=== PATIENT | female | born 1975 | race Caucasian/White ===

== ENCOUNTER 2016-11-27 15:20 | Emergency (ER) | payer OTHER ==
[2016-11-27 15:25] VITALS: RESP 16; TEMP 97.3
--- NOTE | 2016-11-27 15:31 | EDPHY ---
H & P Stated Complaint: dizzy Time Seen by Provider: 11/27/16 15:30 - Personal History LMP (Females 10-55): 8-14 Days Ago Current Tetanus/Diphtheria Vaccine: No Current Tetanus Diphtheria and Acellular Pertussis (TDAP): No - Medical/Surgical History Hx Asthma: No Hx Chronic Respiratory Disease: No Hx Diabetes: No Hx Cardiac Disease: No Hx Renal Disease: No Hx Cirrhosis: No Hx Alcoholism: No Hx HIV/AIDS: No Hx Splenectomy or Spleen Trauma: No Other PMH: pmh- , vtach. psh- csection - Social History Smoking Status: Never smoked Constitutional: Initial Vital Signs Temperature (C) 36.3 C 11/27/16 15:23 Heart Rate 62 11/27/16 15:23 Respiratory Rate 16 11/27/16 15:23 Blood Pressure 113/74 11/27/16 15:23 O2 Sat (%) 99 11/27/16 15:23 O2 Delivery Mode Room Air Allergies/Adverse Reactions: No Known Allergies Allergy (Unverified 06/17/14 11:57) Home Medications: Medication Instructions Recorded predniSONE 50 mg PO DAILY #4 tablet 09/23/15 Meclizine HCl [Meclizine HCl 25 mg 25 mg PO Q8 #20 tab 11/27/16 (RX,OTC)] Medical Decision Making - Diagnostics Imaging Results: Imaging Impressions Brain MRI 11/27/16 16:53 Impression: Normal. I telephoned results to Dr. Jean-Paul Rossi at 1747 hours. Imaging: Discussed imaging studies w/ manager call center Radiologist ED Course/Re-evaluation: CHIEF COMPLAINT: Dizziness HISTORY OF PRESENT ILLNESS: This patient is a 40 year old female with history of ventricular tachycardia complaining of dizziness onset yesterday evening. She describes her sensation as imbalance similar to being on a boat, and feels "strange" or "fuzzy" in the back of her head when she moves her head side to side. These sensations have gotten progressively worse beginning an hour before arrival. She has history of ventricular tachycardia and was previously taking Toprol XL, but discontinued this medication prior to her son's 5 years ago and has not followed up with cardiology since that time. Her arrhythmias were identified by monitor, and were asymptomatic in the past. She is generally in good health, but feels dehydrated today. She has never had similar symptoms before. She does [place] [address] and commutes daily to the [place] area. She denies recent illness, fever, chills, vomiting, or other associated symptoms. REVIEW OF SYSTEMS: A 10 point review of systems was performed and is negative with the exception of the elements mentioned in the history of present illness. PHYSICAL EXAM: HR, BP, O2 Sat, RR. Temp noted General Appearance: Alert, well hydrated, appropriate, and non-toxic appearing. Head: Atraumatic without scalp tenderness or obvious injury Eyes: Pupils equal, round, reactive to light and accommodation, EOMI, no trauma , no injection. Ears: Clear bilaterally, no perforation, normal landmarks Nose: Atraumatic, no rhinorrhea, clear. Throat: There is no erythema or exudates, no lesions, normal tonsils, mucus membranes moist. Neck: Supple, 2+ carotid upstroke, nontender, no lymphadenopathy. Respiratory: No retractions, no distress, no wheezes, and no accessory muscle use. Lungs are clear to auscultation bilaterally. Cardiovascular: Regular rate and rhythm, no murmurs, rubs, or gallops. Good capillary refill all extremities. Gastrointestinal: Abdomen is soft, nontender, non-distended, no masses, no rebound, no guarding, no peritoneal signs. Musculoskeletal: Normal active ROM of all extremities, atraumatic. Neurological: Alert, appropriate, and interactive. The patient has normal DTRs and non-focal cranial nerves, motor, sensory, and cerebellar exam. * Feeling off balance on toes and heels. Strength normal. Skin: No rashes, good turgor, no nodules on palpation. Past medical history: Ventricular tachycardia. Past surgical history: Noncontributory Family history: Noncontributory Social history: Originally from [place]. Moved to [place] two years ago. Has as son. DIFFERENTIAL DIAGNOSIS: The differential diagnosis for the patient's dizziness included but was not limited to peripheral and central causes of vertigo, orthostatic causes including dehydration, cardiogenic and neurogenic causes, and blood loss. MEDICAL DECISION MAKING: The 12 lead EKG was interpreted by myself. See hard copy and/or "tracemaster" electronic copy for interpretation. Sinus bradycardia, rate 51. Patient presents with classic symptoms of benign paroxysmal positional vertigo. No neurologic deficits. No cardiac abnormalities. Plan to administer 25mg PO meclizine, 1mg PO Ativan for symptom relief. 16:52 Reassessed. Feels spinning sensation now. Head feels heavy. Plan for noncontrast MRI brain to rule out cerebellar stroke or other acute processes. 17:[address] Morrison, radiologist. MRI brain negative for acute processes. Plan to discharge home in good condition. She will follow up with ENT for continued management of symptoms. Discussed use of Meclizine for symptom relief. Return precautions discussed. The patient is comfortable with this plan. - Data Points Laboratory Results: 11/27/16 11/27/16 15:40 15:40 Urine Color YELLOW Urine Appearance CLEAR Urine pH 5.0 (5.0-7.5) Ur Specific [place] 1.026 (1.002-1.030) Urine Protein NEGATIVE (NEGATIVE) Urine Ketones NEGATIVE (NEGATIVE) Urine Blood NEGATIVE (NEGATIVE) Urine Nitrate NEGATIVE (NEGATIVE) Urine Bilirubin NEGATIVE (NEGATIVE) Urine Urobilinogen NEGATIVE EU EU (0.2-1.0) Ur Leukocyte Esterase NEGATIVE (NEGATIVE) Urine Glucose NEGATIVE (NEGATIVE) Urine Test NEGATIVE Medications Given: Discontinued Medications Lorazepam (Ativan) 1 mg PO EDNOW ONE Stop: 11/27/16 16:29 Last Admin: 11/27/16 16:30 Dose: 1 mg Meclizine HCl (Meclizine Hcl) 25 mg PO EDNOW ONE Stop: 11/27/16 15:51 Last Admin: 11/27/16 16:02 Dose: 25 mg Departure - Departure Disposition: Home, Routine, Self-Care Clinical Impression: Benign paroxysmal positional vertigo Qualifiers: Laterality: unspecified laterality Qualified Code(s): H81.10 - Benign paroxysmal vertigo, unspecified ear Condition: Good Instructions: Benign Paroxysmal Positional Vertigo (ED), Dizziness (ED) Additional Instructions: 1. Take meclizine, available over the counter, for symptom relief. 2. Follow up with an ear, nose, and throat specialist for continued evaluation of your symptoms. We have referred you to our ENT physician inspector balance wheel motion. 3. We have referred you to our candy depositing machine operator inspector balance wheel motion, Dr. Gsuman. We recommend continued followup with cardiology for management of your history of ventricular tachycardia. 4. Return the the emergency department if you develop headache, weakness or numbness, uncontrollable dizziness, slurred speech, shortness of breath, chest pain, or other worsening of condition. Referrals: [facility] [Other] - As per Instructions Bhupinder Gusman MD [Medical Doctor] - As per Instructions Ash Garza MD [Medical Doctor] - As per Instructions Prescriptions: Meclizine HCl [Meclizine HCl 25 mg (RX,OTC)] 25 mg PO Q8 #20 tab Report Scribed for: Jean-Paul Rossi Report Scribed by: Daphnie Nails Date of Report: 11/27/16 Time of Report: 15:44
--- NOTE | 2016-11-27 15:36 | CPEKG ---
Heart Rate: 51 RR Interval: 1176 P-R Interval: 144 QRSD Interval: 76 QT Interval: 456 QTC Interval: 420 P [place]: 68 QRS [place]: 45 T Wave [place]: 22 EKG Severity - BORDERLINE ECG - EKG Impression: SINUS RHYTHM EKG Impression: PROBABLE LEFT ATRIAL ABNORMALITY Electronically Signed By: Jean-Paul Rossi 27-Nov-2016 21:01:28
[2016-11-27 15:52] LABS: COLOR YELLOW; LEUKOCYTE ESTERASE,URINE NEGATIVE (NEGATIVE); NITRITE,URINE NEGATIVE (NEGATIVE)
[2016-11-27] MEDS: MECLIZINE HCL 25 MG TAB PO ONE (16:02)
[2016-11-27] MEDS: LORazepam 1 MG TAB PO ONE (16:30)
[2016-11-27 17:59] VITALS: BP 97/47; PULSE 60; O2SAT 97
== END 2016-11-27 18:34 | disposition home or self-care (01) ==
DX: H81.10 Benign paroxysmal vertigo, unspecified ear (principal)